=== PATIENT | female | born 1965 | race Caucasian/White ===

== ENCOUNTER 2019-07-07 10:46 | Outpatient (CLI) | payer MEDICAID ==
[2019-07-07 12:57] VITALS: BP 123/66
--- NOTE | 2019-07-07 12:57 | SLEEP CARE CONSULTATION ---
Information from patient questionnaire entered by Symone Hansen. I have reviewed and concur with the information entered by Symone Hansen. This document represents the service I personally performed and the decisions made by me, Maday Denney MD, [facility]. History of Present Illness Reason for Visit: New patient Chief Complaint: reports: Unrefreshed sleep, Snoring, Excessive daytime sleepiness, Observed pauses in breathing, Fatigue, Frequent awakenings at night Duration of Symptoms: 7 years Usual bedtime: 2100 Time it takes to fall asleep: not too long Snores at night: Yes Observed to quit breathing while asleep: Yes Sleeps alone due to snoring: Yes Number of times waking at night: 5-10 Reasons for waking at night: reports: Choking, Gasping for air, Bathroom Toss, Turn, or Twitch while sleeping: Yes Recalls having dreams: Yes Usually gets out of bed at: 0700 Feels refreshed in the morning: No Morning headache: Yes Sleepy or fatigued during the day: Yes Ever fallen asleep while driving: No Takes day naps: Yes Dreams during day naps: Yes Prior sleep studies: Yes Year and Where: 2015 [facility] [place] [address] Additional HPI information: I had the pleasure of seeing Ms. Jones today regarding obstructive sleep apnea-hypopnea. As you know, she is a 53 year old lady who was diagnosed with the sleep-disordered breathing in [place] in 2016. She recalls being told that the sleep apnea was very severe (we do not have the actual sleep study report). She was prescribed a CPAP device set at 7 cmH2O. She uses the ResMed AirSense 10 every night and all night. The compliance data show usage in 165 out of the past 180 nights, averaging 7 hours a night. The residual AHI is 1.3 and average air leak is 0 L/minute. She wears ResMed AirFit P-10 nasal pillows. She hasnt gotten any supplies for years. She finds the treatment beneficial. CPAP Compliance Data - Data Reviewed with Patient Average duration of nightly device use: 6h 46m Compliance rate %: 76 Current pressure setting (cmH2O): 7 Subjective Initial [place] Sleepiness Scale score: 8 Past Medical History Past Medical History: reports: Hypertension, Anxiety, Depression, Other (ptsd,bulging disk C6&C7, DDD, Pre diabetes) Social History The patient's occupation is not employed. Patient is Legally and lives in [place]. Have you smoked in the past 12 months: Yes Cigarettes per day (20/pack): 20 Years of smokin Smoking Pack Years: 25.0 Alcohol use: No Caffeine use: Yes Caffeine amount and frequency: 3-4 cups Family History Family history of sleep disordered breathing: Yes Allergies and Home Medications Drug allergies reviewed: Yes Home medication list reviewed: Yes Review of Systems Weight loss over past 5 years: 15 Cardiovascular: reports: high blood pressure, palpitations, irregular heart rate or pulse Respiratory: reports: chronic cough Gastrointestinal: reports: heartburn, nausea Urinary: reports: incontinence Neurological: reports: headaches Psychiatric: reports: anxiety, depression, claustrophobia Ear/Nose/Throat: reports: nasal congestion, sinus problems, dry mouth/throat, hoarseness, tonsillectomy, wisdom teeth removed Endocrine: denies: thyroid disease, history of goiter, sluggishness, too hot or cold, excessive thirst, increased appetite, increased urination, unexplained weakness, other Musculoskeletal: reports: joint pain, neck pain, back pain, joint swelling, muscle pain or cramping, mobility problems Immunologic: reports: sneezing, itching Physical Exam Vital signs obtained and entered by: Dr. Denney Blood Pressure: 123/66 Cuff size: regular Heart Rate: 93 O2 Saturation: 97 Height: 5 ft 2 in Weight: 165 lb Body Mass Index: 30.2 BMI Classification: Obesity Class 1 Neck circumference: 15 Mood/affect: normal HEENT: No craniofacial malformation Nostrils: patent to airflow Turbinates: normal Septum: midline Mouth and throat: narrow oropharynx Soft palate: long Hard palate: normal Uvula: normal Uvula visualization: 50% Mallampati Class II Tongue: normal in size Tonsils: absent bilaterally Chin and jaw: normal size and position Neck: normal w/o lymphadenopathy or thyromegaly Heart: regular rate and rhythm Lungs: wheeze Abdomen: soft, non-tender Extremities: no edema or clubbing Neurologic: intact, no focal deficits Impression and Plan IMPRESSION: 1. Obstructive Sleep Apnea-Hypopnea Syndrome, as previously diagnosed. The severity is unknown as we do not have her sleep study report from [place]. The compliance data show good compliance. The patient reports significant improvement on the positive airway pressure therapy. The current pressure setting appears effective and comfortable. She now has run out of supplies. I will order her supplies through a local durable medical supplier. Plan: 1. Prescription made for supplies. 2. Try Respironics DreamWear nasal cushion mask or ResMed N30i mask. 3. Quit smoking cigarettes. 4. Attempt to lose weight. 5. Return for follow up in a year or earlier if there is any problem. I spent 100% of this 20 minute visit face to face with the patient with greater than 50% of this was spent time counseling the patient and coordination of care.
== END 2019-07-07 10:47 | disposition home or self-care (01) ==
LOC: SC 10:46
PROVIDERS: ATTEND Internal Medicine Pulmonary Disease
DX: G47.33 Obstructive sleep apnea (adult) (pediatric) (principal); F17.210 Nicotine dependence, cigarettes, uncomplicated; E66.9 Obesity, unspecified; Z68.30 Body mass index [BMI] 30.0-30.9, adult
CPT/HCPCS: 99203; 99212

== ENCOUNTER 2024-05-11 14:18 | Emergency (ER) | payer MEDICARE, MEDICAID ==
--- NOTE | 2024-05-11 16:13 | ED Physician Documentation ---
History of Present Illness - Stated complaint Stated Complaint: RT HIP PX - Chief complaint Chief Complaint: Ext Problem - History obtained from History obtained from: Patient - History of Present Illness Pain level max: 10 Pain level now: 10 - Additonal information Additional information: 58 year old female with R posterior pelvis/hip pain after stepping wrong on her foot. Patient has been going to physical therapy for the past several weeks to work on pain in her hips. She states that the pain is worse with standing, walking, better with sitting. Is on gabapentin and meloxicam at home for pain. Takes Valium intermittently as well. No fevers. No chills. No loss of bowel or bladder control. No neck or back pain. No numbness or tingling. Does not use any IV drugs. Review of Systems Constitutional: denies: Fever, Chills GI: denies: Vomiting, Diarrhea Skin: denies: Rash Musculoskeletal: denies: Neck pain, Back pain Neurologic: denies: Headache PD PAST MEDICAL HISTORY - Past Medical History Past Medical History: Yes Cardiovascular: Hypertension, High cholesterol Endocrine/Autoimmune: Type 2 diabetes Other Past Medical History: psoriatic arthritis - Past Surgical History Past Surgical History: Yes - Present Medications Home Medications: Ambulatory Orders Medication Instructions Recorded Confirmed HYDROcod/ACETAM 5/325 [[place] 5/325] 1 - 2 ea PO Q6H PRN #14 tablet 05/11/24 - Allergies Allergies/Adverse Reactions: Allergies Allergy/AdvReac Type Severity Reaction Status Date / Time ketorolac Allergy Edema Verified 05/11/24 14:36 - Social History Does the pt smoke?: Yes Smoking Status: Current every day smoker Does the pt drink ETOH?: No Does the pt have substance abuse?: No - Immunizations Immunizations are current?: Yes - POLST Patient has POLST: No PD ED PE NORMAL - Vitals Vital signs reviewed: Yes - General General: Alert and oriented X 3, No acute distress - HEENT HEENT: PERRL - Cardiac Cardiac: RRR, Strong equal pulses - Respiratory Respiratory: No respiratory distress, Clear bilaterally - Abdomen Abdomen: Soft, Non tender, Non distended - Back Back: Other (Tender to palpation over the right sacroiliac joint. This reproduces her pain. No other midline tenderness over the thoracic, lumbar or sacral spines. No tenderness over the right hip joint itself. Neurovascular intact.) - Derm Derm: Warm and dry - Extremities Extremities: No deformity, Other (Normal bilateral lower extremity patellar and ankle jerk reflexes. Normal great toe extension bilaterally. no saddle anesthesia) - Neuro Neuro: Alert and oriented X 3, Other (Normal bilateral lower extremity patellar and ankle jerk reflexes. Normal great toe extension bilaterally. no saddle anesthesia) - Psych Psych: Normal mood, Normal affect Results - Vitals Vitals: Vital Signs - 24 hr 05/11/24 14:30 Temperature 36.4 C L Heart Rate 85 Respiratory 17 Rate Blood Pressure 109/66 O2 Saturation 97 Oxygen O2 Source Room air - Rads (name of study) Right hip x-ray Relevant Findings:: Final report received, See rad report PD Medical Decision Making - ED course Complexity details: reviewed results, re-evaluated patient, considered differential (No cauda equina, no spinal epidural abscess, no fracture, no aortic dissection or evidence of aneursym rupture), d/w patient ED course: Patient is a 58-year-old female who is tender to palpation over the right sacroiliac joint. This reproduces her pain and correlates to the site of her pain as well. History of rheumatoid arthritis. She is on Humira and methotrexate at home. She is on several other medications as well, but I do not see any contraindications to pain medication in her chart, that she states that hydrocodone has helped in the past. Will prescribe a small amount of this. Patient was given a walker as well to help decrease the amount of pressure on the right SI joint. She will continue her physical therapy. No acute findings on x-ray. Patient counseled regarding signs and symptoms for which I believe and urgent re-evaluation would be necessary. Patient with good understanding of and agreement to plan and is comfortable going home at this time This document was made in part using voice recognition software. While efforts are made to proofread this document, sound alike and grammatical errors may occur. Departure - Departure Disposition: 01 Home, Self Care Clinical Impression: Sacroiliitis Condition: Good Instructions: ED Sacroiliitis Follow-Up: PACO PERKINS ARNP [Primary Care Provider] - Prescriptions: HYDROcod/ACETAM 5/325 [[place] 5/325] 1 - 2 ea PO Q6H PRN #14 tablet PRN Reason: Pain Comments: You were seen today for right posterior hip pain that is consistent with sacroiliitis. As we discussed your x-ray does not show any acute abnormalities today. We will place you on pain medication for the next few days and the inflammation should start to decrease. Please follow-up with your doctor for further care and return if you worsen. Your prescriptions were sent to [facility] in [place]. I am prescribing a short course of narcotic pain medication for you. These are potentially dangerous and addictive medications that should be used carefully. These medications may constipate you. Take an gpeu-hfy-xbbtegs stool softener (docusate) twice daily with plenty of water while taking these medications. If you go 24 hours without a bowel movement, take voaq-iet-dunsqah miralax, per package instructions. Do not drink or drive while taking these medications. If you received narcotic or sedating medications while in the emergency department, do not drive for 24 hours. Store this medication in a safe, secure place and out of reach of children. It is a violation of federal law to give or sell this medication to another person or to use in a manner other than prescribed. The ED will not refill narcotic prescriptions, including prescriptions lost or stolen. To dispose of unwanted medications: 1. [facility] [address] in [place] has a medication drop box. They accept prescription medications (in pill form) Saturday through Saturday 9:00 a.m. to 5:00 p.m. 2. The [facility] [employer] accepts prescription medications (in pill form only) for disposal year round. Call for more information. 3. Contact the [facility] for the next [facility] sponsored prescription drug collection event. , [phone], or [phone]; Forms: PCP List
[2024-05-11] MEDS: HYDROcod/ACETAM 5/325 MG TABLET PO STA (16:14)
[2024-05-11 16:34] VITALS: BP 110/60; O2SAT 98
--- NOTE | 2024-05-11 16:37 | XRAY Report ---
PROCEDURE: Hip w/Pelvis 2-3V RT INDICATIONS: fall, pain TECHNIQUE: 2 views of the hip were acquired. COMPARISON: None. FINDINGS: Bones: No fractures or dislocations. Right hip joint osteoarthritic changes are seen with superior joint space narrowing and subchondral sclerosis. No suspicious bony lesions. Soft tissues: No suspicious soft tissue calcifications or masses. IMPRESSION: No acute right hip fracture or dislocation. Mild right hip joint osteoarthritis. No evidence of avasc ular necrosis. Reviewed by: Peterson Lazo MD on 05/11/2024 4:35 PM PDT Approved by: Peterson Lazo MD on 05/11/2024 4:35 PM PDT Station ID: [id number]
== END 2024-05-11 16:31 | disposition home or self-care (01) ==
LOC: ED 14:18
DX: M46.1 Sacroiliitis, not elsewhere classified (principal); I10 Essential (primary) hypertension; E78.00 Pure hypercholesterolemia, unspecified; E11.9 Type 2 diabetes mellitus without complications; F17.200 Nicotine dependence, unspecified, uncomplicated
CPT/HCPCS: 73502; 99283; A9270